=== PATIENT | male | born 1975 | race Caucasian/White ===

== ENCOUNTER 2016-12-22 17:42 | Emergency (ER) | payer SELFPAY ==
--- NOTE | 2016-12-22 20:17 | Emergency Room Report ---
History of Present Illness General Chief Complaint: To Be Triaged Medical Decision Making Diagnostic Impression: Primary Impression: Patient left without being seen ER Course Patient left prior to triage or M.D. evaluation Status: unchanged Disposition: LEFT W/OUT BEING SEEN Condition: Unknown JOSÉ LUIS ARMANDO M.D. Dec 22, 2016 20:17
== END 2016-12-22 17:45 | disposition left against medical advice (07) ==
LOC: EMR 17:42
DX: Z53.21 Procedure and treatment not carried out due to patient leaving prior to being seen by health care provider (principal)

== ENCOUNTER 2017-01-16 22:26 | Emergency (ER) | payer BC ==
[~2017-01-16] VITALS: Ht 172.7 cm; Wt 81.6 kg
[2017-01-16 23:15] VITALS: BP 130/95
[2017-01-17] VITALS: BP 127/92
--- NOTE | 2017-01-17 04:41 | Emergency Room Report ---
History of Present Illness General Chief Complaint: Abdominal Pain Source: Patient Present Illness HPI Patient is a 41-year-old male who presented after increased abdominal pain. Patient stated he had been having some increased nausea earlier in the day. Patient prior diagnosis of a ventral hernia. Patient stated that he had been having some pain to his abdominal area which had improved since being in the bed. He had prior history of a ventral hernia and that he usually lifts heavy objects at work. The patient states that he has not followed up with his surgeeon as previously directed. Allergies: Coded Allergies: No Known Allergies (Unverified , 01/16/17) Patient History Past Medical History: see triage record Reviewed Nursing Documentation: PMH: Agreed, PSxH: Agreed Review of Systems All Other Systems: negative except mentioned in HPI Physical Exam Vital Signs Date Time Temp Pulse Resp B/P Pulse Ox O2 Delivery O2 Flow Rate FiO2 01/16/17 22:39 97.2 101 20 126/91 97 Room Air General Appearance: well appearing, no apparent distress, alert, GCS 15 Head: normocephalic, atraumatic ENT: hearing grossly normal, normal voice Neck: full range of motion, supple Respiratory: no respiratory distress, speaking full sentences Gastrointestinal: normal inspection, normal bowel sounds, non tender, soft, other - hernia defect easily reducible Musculoskeletal: no calf tenderness Neurologic: normal inspection, alert, oriented x3, responsive, normal gait Psychiatric: mood/affect normal Skin: no rash Medical Decision Making Diagnostic Impression: Primary Impression: Ventral hernia ER Course Patient presented for abdominal pain. Differential diagnoses included ischemic bowel, appendicitis, perforated viscus, abdominal aortic aneurysm, inferior myocardial infarction, viral gastroenteritis Patient's benign exam and does not appear to require any further imaging or laboratory testing at this time. The patient's pain appears to be related to a nonincarcerated non-strangling hernia. The patient was given referral to general surgeon.The patient is advised to follow up with primary care doctor in 1-2 days. Patient is advised to return if any worsening condition or if any changes in status that are concerning. Last Vital Signs Date Time Temp Pulse Resp B/P Pulse Ox O2 Delivery O2 Flow Rate FiO2 01/17/17 00:00 98.1 80 17 127/92 100 Room Air Status: improved Disposition: HOME, SELF-CARE Condition: Stable Referrals: HERMELINDO MEYERS Departure Forms: Return to Work Other Restrictions: no lifting greater than 20 lbs Patient Instructions: Inguinal Hernia, Adult, [id number] Clinton Portillo Jan 17, 2017 04:41
== END 2017-01-17 | disposition home or self-care (01) ==
LOC: EMR 23:15
DX: K43.9 Ventral hernia without obstruction or gangrene (principal); R11.0 Nausea
CPT/HCPCS: 29540; 99282

== ENCOUNTER → 2017-02-26 | Emergency (ER) | payer BC ==
--- NOTE | 2017-02-26 16:29 | Emergency Room Report ---
History of Present Illness General Chief Complaint: To Be Triaged Present Illness Allergies: Coded Allergies: No Known Allergies (Unverified , 01/16/17) Medical Decision Making PA Attestation Dr. Chowdhury is my supervising physician. Patient management was discussed with my supervising physician Diagnostic Impression: Primary Impression: Patient left without being seen ER Course The patient left before being triaged and was not seen. Disposition: LEFT W/OUT BEING SEEN Condition: Unknown HA MURPHY Feb 26, 2017 16:29
== END | disposition left against medical advice (07) ==
LOC: EMR 15:09
DX: K64.9 Unspecified hemorrhoids (principal); Z53.21 Procedure and treatment not carried out due to patient leaving prior to being seen by health care provider

== ENCOUNTER 2017-05-30 19:36 | Emergency (ER) | payer BC ==
[~2017-05-30] VITALS: Ht 167.6 cm; Wt 81.6 kg
[2017-05-30] MEDS ORDERED: NKM (19:52)
[2017-05-30 19:55] VITALS: BP 141/91
--- NOTE | 2017-05-30 19:59 | Emergency Room Report ---
History of Present Illness General Chief Complaint: Abdominal Pain Source: Patient Present Illness HPI 41-year-old male presents to the emergency department complaining of 10 out of 10 in severity localized pain to the site of his hernia since this a.m. Patient states he has a history of abdominal hernia which typically is reducible however patient is stating that it is not reduced on its own this time. Patient states he strains as part of work as he lifts heavy objects. Patient reports nausea denies vomiting, fevers, chills, or redness about the area of the hernia. Patient states he has an appointment scheduled for surgery next week. Patient denies trauma to the abdomen otherwise. Denies CP, Palpitations, LOC, AMS, dizziness, Changes in Vision, Sensation, paresthesias, or a sudden severe headache. Allergies: Coded Allergies: No Known Allergies (Unverified , 05/30/17) Patient History Past Medical History: see triage record Past Surgical History: none Pertinent Family History: none Reviewed Nursing Documentation: PMH: Agreed, PSxH: Agreed Nursing Documentation-PMH Past Medical History: No History, Except For Review of Systems All Other Systems: negative except mentioned in HPI Physical Exam Vital Signs Date Time Temp Pulse Resp B/P Pulse Ox O2 Delivery O2 Flow Rate FiO2 05/30/17 19:47 97.3 112 18 141/91 98 Sp02 EP Interpretation: reviewed, abnormal - tachycardic at 112 bpm General Appearance: alert, GCS 15, non-toxic, moderate distress Head: normocephalic, atraumatic Eyes: bilateral eye PERRL, bilateral eye normal inspection ENT: hearing grossly normal, normal pharynx, no angioedema, normal voice Neck: full range of motion, supple/symm/no masses Respiratory: lungs clear, normal breath sounds, speaking full sentences Cardiovascular #1: regular rate, rhythm, no edema Gastrointestinal: normal bowel sounds, soft, no guarding, no rebound, tenderness - TTP to the umbillical region where hernia is prominent. , hernia - umbillical, other - TTP to the umbillical region where hernia is prominent. no erythema no increased temperature to palpation at this time. Rectal: deferred Musculoskeletal: back normal, gait/station normal, normal range of motion, non- tender Neurologic: alert, oriented x3, responsive, motor strength/tone normal, sensory intact, speech normal Psychiatric: judgement/insight normal, memory normal, mood/affect normal Skin: normal color, no rash, warm/dry, well hydrated Medical Decision Making PA Attestation Dr. atwood is my supervising Physician whom patient management has been discussed with. Diagnostic Impression: Primary Impression: Umbilical hernia without mention of obstruction or gangrene ER Course 41-year-old male presents to the emergency department complaining of 10 out of 10 in severity localized pain to the site of his hernia since this a.m. Patient states he has a history of abdominal hernia which typically is reducible however patient is stating that it is not reduced on its own this time. Patient states he strains as part of work as he lifts heavy objects. Patient reports nausea denies vomiting, fevers, chills, or redness about the area of the hernia. Patient states he has an appointment scheduled for surgery next week. Patient denies trauma to the abdomen otherwise. Denies CP, Palpitations, LOC, AMS, dizziness, Changes in Vision, Sensation, paresthesias, or a sudden severe headache. Ddx considered but are not limited to non-reducible hernia/strangulation/ incarceration, Diverticulitis, acute appendicitis, diarrhea, Vital signs: are WNL, pt. is afebrile, tachycardic at 112 BPM H&PE are most consistent with : Umbilical hernia, will attempt to reduce, if unsuccessful laboratory work and imaging is needed to r/o incarceration/ strangulation. ORDERS: -CBC, CMP: Pt. refused labs - CT Abdomen and Pelvis with IV and oral contrast: PT. refused imaging and labs. ED INTERVENTIONS: -Zofran 4mg PO -- Pt refuses IV NS, and pain medication -Multiple attempts were made to reduce the hernia manually by both myself and supervising physician Dr. Chowdhury. An abdominal binder was also placed in an attempt to reduce the hernia as patient is refusing imaging and laboratory work. - Pt. begins to experience vomiting, pt. continues to not want to have work-up and imaging done, pt. wants nausea medication, and to leave the department AMA. DISPOSITION: - At this time the patient is requesting to leave AGAINST MEDICAL ADVICE. I believe that this patient has the capacity to make decisions on His own. I discussed with the patient the risks of leaving AMA. Some of these risks include delay in diagnosis and treatment, as well as worsening of symptoms, organ damage, and permanent disability or even . After discussing these risks with the patient. He continues to express His want to leave AGAINST MEDICAL ADVICE. I encouraged the patient to return at any time, and that he will be welcome here in the emergency department to continue medical management. Pt. Signed AMA form. Last Vital Signs Date Time Temp Pulse Resp B/P Pulse Ox O2 Delivery O2 Flow Rate FiO2 05/30/17 19:47 97.3 112 18 141/91 98 Disposition: AGAINST MEDICAL ADVICE Condition: Unknown Patient Instructions: Hernia, Adult, [id number] Additional Instructions: Take medications as directed. Follow up with a Primary Care Provider in 3-5 days, even if your symptoms have resolved. --Please review list of primary care clinics, if you do not already have a primary care provider !!! Return sooner to ED if new symptoms occur, or current symptoms become worse, or If you change your AMA decision and want to continue evaluation of your symptoms. - Please note that this Emergency Department Report was dictated using [employer] specialist technology software, occasionally this can lead to erroneous entry secondary to interpretation by the dictation equipment. Kassi Manzanares May 30, 2017 19:59
[2017-05-30] MEDS ORDERED: Morphine Sulfate 4mg/ml Inj IVP ONE (20:15)
[2017-05-30 22:00] VITALS: BP 141/91
== END 2017-05-30 22:00 | disposition left against medical advice (07) ==
LOC: EMR 20:15
DX: K42.9 Umbilical hernia without obstruction or gangrene (principal)
CPT/HCPCS: 99282

== ENCOUNTER 2017-11-29 04:21 | Emergency (ER) | payer SELFPAY ==
[~2017-11-29] VITALS: Ht 172.7 cm; Wt 77.1 kg
[~2017-11-29 04:21] MED LIST: NKM
[2017-11-29 04:35] VITALS: BP 128/82
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
[2017-11-29 05:08] VITALS: BP 128/82
--- NOTE | 2017-11-29 11:36 | Diagnostic Imaging Report ---
Indication: Pain Technique: XRAY Wrist Complete L Comparison: None Findings: There is no acute fracture or dislocation. Questionable remote fracture deformity of the head of the fifth metatarsal. Anatomic alignment and joint spaces are preserved. No focal soft tissue defect is appreciated. No radiopaque foreign body seen. Impression: No acute fracture or dislocation.
== END 2017-11-29 05:12 | disposition home or self-care (01) ==
LOC: EMR 04:46
DX: M79.642 Pain in left hand (principal); K42.9 Umbilical hernia without obstruction or gangrene
CPT/HCPCS: 99283

== ENCOUNTER 2018-03-15 09:40 | Emergency (ER) | payer SELFPAY ==
[~2018-03-15] VITALS: Ht 170.2 cm; Wt 68.0 kg
[2018-03-15] MEDS ORDERED: ADDERAL20 MG ORAL (09:52)
[2018-03-15 09:55] VITALS: BP 110/82
[2018-03-15 10:18] VITALS: BP 110/82
--- NOTE | 2018-03-15 10:21 | Emergency Room Report ---
History of Present Illness General Chief Complaint: General Complaint Source: Patient Present Illness HPI Patient presents with complaints of umbilical hernia Reports that he has a hernia for the past year Denies any pain at this time denies any fevers or chills Denies any vomiting or diarrhea Patient reports that he was told by someone that he would need surgery for this Allergies: Coded Allergies: No Known Allergies (Unverified , 05/30/17) Patient History Past Medical History: see triage record Pertinent Family History: none Reviewed Nursing Documentation: PMH: Agreed; PSxH: Agreed Review of Systems All Other Systems: negative except mentioned in HPI Physical Exam Vital Signs Date Time Temp Pulse Resp B/P (MAP) Pulse Ox O2 Delivery O2 Flow Rate FiO2 03/15/18 09:45 98.0 96 14 110/82 97 Room Air 98.1 Sp02 EP Interpretation: reviewed, normal General Appearance: well appearing, no apparent distress Head: normocephalic, atraumatic Eyes: bilateral eye PERRL, bilateral eye EOMI ENT: normal pharynx, no angioedema Neck: supple, thyroid normal Respiratory: lungs clear Cardiovascular #1: regular rate, rhythm, no edema Gastrointestinal: other - Umbilical hernia is palpable, soft easily reducible nonpulsatile Musculoskeletal: normal inspection, back normal Neurologic: alert, oriented x3, responsive, supervisor 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 III-XII nml as tested Skin: normal color, other - As above Lymphatic: no adenopathy Medical Decision Making Diagnostic Impression: Primary Impression: Umbilical hernia ER Course Patient's clinical findings and history are indicative of umbilical hernia Does not appear strangulated or incarcerated Nontender and easily reducible Patient is advised with follow-up with primary for further specialty consultation Last Vital Signs Date Time Temp Pulse Resp B/P (MAP) Pulse Ox O2 Delivery O2 Flow Rate FiO2 03/15/18 09:55 98.1 96 14 110/82 97 Room Air 98.1 Status: unchanged Disposition: HOME, SELF-CARE Condition: Stable Patient Instructions: Hernia, Adult, [id number] Additional Instructions: Patient is provided with the discharge instructions notified to follow up with primary doctor in the next 2-3 days otherwise return to the er with any worsening symptoms. Please note that this report is being documented using [employer] technology. This can lead to erroneous entry secondary to incorrect interpretation by the dictating instrument. Marcello Davis DO Mar 15, 2018 10:21
== END 2018-03-15 10:30 | disposition home or self-care (01) ==
LOC: EMR 10:02
DX: K42.9 Umbilical hernia without obstruction or gangrene (principal)
CPT/HCPCS: 99282

== ENCOUNTER 2020-07-29 01:51 | Emergency (ER) | payer SELFPAY ==
[~2020-07-29] VITALS: Ht 170.2 cm; Wt 77.1 kg
[~2020-07-29 01:51] MED LIST changes: +ADDERAL20 MG ORAL
[2020-07-29 02:05] VITALS: BP 133/79
--- NOTE | 2020-07-29 02:10 | Emergency Room Report ---
History of Present Illness General Chief Complaint: Abdominal Pain Source: Patient Present Illness HPI Disclaimer: Please note that this report is being documented using [employer] technology. This can lead to erroneous entry secondary to incorrect interpretation by the dictating instrument. HPI: 44-year-old male history of umbilical hernia presents requesting an abdominal binder. Patient states he has had hernia for several years from lifting heavy boxes. He denies abdominal pain, nausea, vomiting, diarrhea. Continues to pass gas. Has not yet followed up with general surgery for repair of hernia. Requesting abdominal binder as he has misplaced his. No other issues. Denies recent fever, chills, chest pain, shortness of breath or other changes in his health. PMH: Umbilical hernia PSH: Reviewed Allergies: Reviewed Social Hx: Reviewed Allergies: Coded Allergies: No Known Allergies (Unverified , 05/30/17) COVID-19 Screening Contact w/high risk pt: No Experienced COVID-19 symptoms?: No COVID-19 Testing performed PLATE FINISHER: No Nursing Documentation-PMH Past Medical History: No Stated History Review of Systems All Other Systems: negative except mentioned in HPI Physical Exam Vital Signs Date Time Temp Pulse Resp B/P (MAP) Pulse Ox O2 Delivery O2 Flow Rate FiO2 07/29/20 01:58 98.2 96 16 129/87 (101) 94 Room Air General: Awake and alert, no acute distress HEENT: NC/AT. EOMI. Resp: Normal work of breathing Abdomen: Soft, nontender, nondistended. There is an umbilical hernia that is easily reducible. No evidence of incarceration or strangulation. Skin: Intact. No abrasions, laceration or rash over the exposed skin MSK: Normal tone and bulk. Moving all extremities. No obvious deformity. Neuro: Awake and alert. Mentating appropriately Medical Decision Making Diagnostic Impression: Primary Impression: Umbilical hernia ER Course Patient with a history of umbilical hernia presents requesting abdominal binder. Denies abdominal pain, nausea, vomiting. Hernia is easily reducible. No evidence of incarceration or strangulation. Patient was provided with abdominal binder. Referred to general surgery for surgical evaluation and treatment. Stable for outpatient follow-up. Instructed to return to the ED with new or worsening symptoms. Last Vital Signs Date Time Temp Pulse Resp B/P (MAP) Pulse Ox O2 Delivery O2 Flow Rate FiO2 07/29/20 01:58 98.2 96 16 129/87 (101) 94 Room Air Disposition: HOME, SELF-CARE Condition: Stable Referrals: Dieudonne Stanford Moussa MD [facility] Beatrice Gleason [facility] Patient Instructions: Umbilical Herniorrhaphy Additional Instructions: Please follow-up with your primary care doctor in the next 1 to 3 days to discuss this emergency department visit and for reevaluation. Wear the binder as instructed. Follow-up with general surgery for surgical repair of the umbilical hernia. If you have any new or worsening symptoms please return to the emergency department for reevaluation. Please note that this report is being documented using [employer] technology. This can lead to erroneous entry secondary to incorrect interpretation by the dictating instrument. Ayaz Elizalde MD Jul 29, 2020 02:10
[2020-07-29 02:11] VITALS: BP 124/79
== END 2020-07-29 02:20 | disposition home or self-care (01) ==
LOC: EMR 02:12
DX: K42.9 Umbilical hernia without obstruction or gangrene (principal)
CPT/HCPCS: 99281